=== PATIENT | male | born 1945 | race Caucasian/White ===

== ENCOUNTER 2017-05-08 05:12 | Inpatient (IN) ==
[2017-05-08] MEDS ORDERED: CEFAZOLIN 1 G INJECTION IVP ONE (05:35)
[2017-05-08 05:43] VITALS: BMI 41.1
[2017-05-08] MEDS ORDERED: FAMOTIDINE PB 20 MG/50 ML BAG IV ONE (06:00)
[2017-05-08] MEDS ORDERED: ONDANSETRON 4 MG/2 ML INJECTION IVP ONE (06:00)
[2017-05-08] MEDS ORDERED: LIDOCAINE 1% (10mg/ml) 2mL INJ PF SDV ID ONE (06:00)
[2017-05-08] MEDS ORDERED: METOCLOPRAMIDE 10mg/2ml INJECTION IVP ONE (06:00)
[2017-05-08] MEDS ORDERED: NS 1,000 ML IV SCH (06:00)
[2017-05-08] MEDS ORDERED: NOZIN NASAL SWAB NAS ONE ×2 (06:00→10:35)
[2017-05-08] MEDS ORDERED: ACETAMINOPHEN 500 MG TABLET PO ONE (06:00)
[2017-05-08] MEDS ORDERED: VANCOMYCIN 1,000 MG INJECTION ONE (06:27)
[2017-05-08] MEDS ORDERED: PROPOFOL 500 MG/50 ML VIAL IV ONE ×2 (06:35→08:02)
[2017-05-08] MEDS ORDERED: SEVOFLURANE 250ml LIQUID IH ONE (06:37)
--- NOTE | 2017-05-08 06:48 | Anesthesia Preoperative Report ---
Anesthesia Preoperative Record - Date and Time Date: 05/08/17 Preoperative Diagnosis: RT KAREN M16.11 Proposed Procedure: KAREN NPO Since Date: 05/08/17 NPO Since Time: 02:00 Allergies/Adverse Reactions: Allergies Allergy/AdvReac Type Severity Reaction Status Date / Time metformin Allergy Unknown YEAST Verified 05/08/17 05:54 INFECTION - Vital Signs Vital Signs: Temperature 98.4 F 05/08/17 05:42 Pulse Rate 102 H 05/08/17 05:42 Respiratory Rate 20 05/08/17 05:42 Blood Pressure 147/70 H 05/08/17 05:42 Pulse Oximetry 96 05/08/17 05:42 Height and Weight: Height 1.83 m Weight 137.6 kg Body Mass Index 41.1 - Medications Inpatient Medications: Current Medications Sodium Chloride (Normal Saline) 1,000 mls @ 50 mls/hr IV .Q20H NATALY Last Admin: 05/08/17 06:00 Dose: 50 mls/hr Epinephrine HCl 0.25 mg/Bupivacaine HCl 30 ml/Morphine Sulfate 15 mg/Ketorolac Tromethamine 60 mg/Sodium Chloride 65.25 mls @ 0 mls/hr OPSITE INTRAOP ONE; Per Protocol PRN Reason: Protocol Stop: 05/08/17 08:01 Tranexamic Acid 1,000 mg/ (Sodium Chloride) 110 mls @ 0 mls/hr TOP INTRAOP ONE PRN Reason: As Directed Stop: 05/08/17 16:40 Sodium Chloride (Iv Flush) 10 - 80 ml IV PRN PRN PRN Reason: Flushing Home Medications: Home Medications Medication Instructions Recorded Confirmed Type azithromycin 250 mg tablet 250 mg PO Q2D 28 Days tab 01/22/17 05/08/17 History Ascorbic Acid [Vitamin C] 1,000 mg PO BID 03/17/17 05/08/17 History Dabigatran [Pradaxa] 150 mg PO BID 03/17/17 05/07/17 History Furosemide [Lasix] 20 tab PO DAILY PRN 03/17/17 05/08/17 History Insulin Glargine [Lantus] 50 unit SQ BID 03/17/17 05/08/17 History Insulin Lispro [Humalog] 10 unit SQ BID 03/17/17 05/08/17 History Potassium Chloride [K-Dur] 10 meq PO WS PRN 03/17/17 05/08/17 History Rosuvastatin Calcium 20 mg PO WS 03/17/17 05/08/17 History Losartan/Hctz 100/25 [Hyzaar 1 tab PO DAILY 04/03/17 05/08/17 History 100/25] Mometasone Furoate [Asmanex] 1 puff INH Q4-6HPRN PRN 04/03/17 05/08/17 History Albuterol Sulfate [Proair Hfa] 1 puff INH PRN 05/08/17 History - Medical History Respiratory: Reports: Asthma Cardiovascular: Reports: Arrhythmia, Hypertension Gastrointestional: Reports: Morbid Obesity Renal/Endocrine: Reports: Diabetes Mellitus Type 1 - Surgical History HEENT Surgeries: Reports: Nose Surgery (sinus surgery x3), Oral Surgery (dental implants), Other (Exc of growth in throat-middle school) GI Surgery/Treatments: Reports: Colonoscopy (Polyps, hyperplastic and tubular adenoma), Other (abdominal abscess, drained in office) Musculoskeletal Surgery/Tx: Reports: Knee Arthroscopy (right menisectomy) Reproductive Surgery/Treatment: Reports: Vasectomy Anesthesia Reactions: None Hx Family Anesthesia Reaction: No History of Motion Sickness: No - Social History Smoking Status: Former smoker Hx Chewing Tobacco Use: No Second Hand Exposure: No Substance Use Type: does not use Alcohol Intake Frequency: does not drink - Pertinent Findings Laboratory: CBC and BMP 05/08/17 06:02 BMP 05/08/17 06:02 Sodium 145 H Potassium 3.7 Chloride 108 H Carbon Dioxide 26 BUN 21.0 H Creatinine 0.8 Glucose 80 Calcium 9.4 EKG: A-fib - Physical Exam Respiratory Exam: Present: wheezing Cardiovascular Exam: Present: irregularly irregular, no murmur - Airway Assessment Mallampati Score: I TMD: 3 Fingerbreadths Neck Extension: good Teeth: chipped teeth/crowns Overall Assessment: may be difficult mask vent - ASA ASA Score: 3 - Plan Regional/Trunk Block: Spinal - Discussion Discussion: Discussed risks/options/alternatives of anesthesia and questions answered. Patient consents. Nursing pain assessment noted. Present for Discussion: family member Attestation Statement: Prior to the delivery of any anesthetic medication, I examined the patient, developed the plan, obtained the patient's consent and discussed the risk and benefits of the procedure with the patient/guardian. - Additional Information Seen by Anesthesia: Yes
[2017-05-08] MEDS ORDERED: D5LR 1,000 ML IV SCH (07:00)
[2017-05-08] MEDS ORDERED: EPINEPHrine 0.25 MG, BUPIVACAINE 0.25% PF 30 ML, MORPHINE SULFATE 15 MG, KETOROLAC INJ ... OPSITE ONE (08:00)
[2017-05-08] MEDS ORDERED: PROPOFOL 20 ML ONE ×2 (08:55→09:17)
[2017-05-08] MEDS ORDERED: HYDROMORPHONE 2 MG/ML INJECTION IVP PRN (09:02)
[2017-05-08] MEDS ORDERED: VANCOMYCIN 1,000 MG INJECTION IAR ONE (09:02)
--- NOTE | 2017-05-08 09:15 | Operative Note ---
- Procedure Preoperative Diagnosis: Right hip primary degenerative joint disease Postoperative Diagnosis: Same as preoperative diagnosis. Surgeon: Michael Smalls MD Air Marshal: Obey Kimbrough Complications: None. Anesthesia: Spinal. Estimated Blood Loss: See Anesthesia Record. Fluids: Please see Anesthesia Record. Description of Procedure: Mr. Brown and his right hip were identified and marked in the preoperative holding area. He was brought back to the operating suite and spinal anesthetic was administered. He was then placed in a lateral decubitus position with his right hip up. The right lower extremity was prepped and draped in my normal sterile fashion. Timeout was performed. The [employer] Voyage robotic arm was used to assist with the surgery. A pelvic array was placed into the iliac crest through three 1 cm incisions. A posterior approach was utilized. An approximately 15 cm incision was made in the skin and dissection carried down to the muscle fascia which was then split in line with skin incision. A checkpoint was placed in the greater trochanter. The short external rotators were identified and tagged and detached. A capsulotomy was performed and the hip dislocated. A femoral neck osteotomy was performed at the pre-templated level measuring down 68mm from the femoral head. The head was removed and acetabulum exposed. Labrum was removed. The acetabulum was then registered with the robot. The robotic arm was then used to ream with a 53 reamer. The robot then was again used to place a 54 Trident cup in 40 of tilt and 25 of anteversion. A liner was then placed. The proximal femur was exposed and prepared with a cookie cutter followed by reaming and broaching to a size 7. We trialed with a +5 head. After thorough irrigation a final Accolade 2 size 7 stem with 127 neck was placed. Leg length and offset were checked with the robot and were good. A final +5 metal head was placed and the hip reduced. Betadine solution was used to irrigate throughout the case. 1 g of TXA was allowed to sit in the wound for 5 minutes and then suctioned out.It was followed by normal saline irrigation. Joint cocktail was injected throughout soft tissue. The capsulotomy was repaired with Ethibond. Short external rotators were also repaired with Ethibond. 1 g of vancomycin powder was placed into the wound. The muscle fascia was then repaired with #1 Vicryl. I then left my benefits assistant to close the subcutaneous tissue with 2-0 Vicryl followed by running 4-0 Monocryl skin followed by Dermabond and a sterile dressing. The patient with any placed back into supine position and taken to recovery room in the care of anesthesia.
--- NOTE | 2017-05-08 10:21 | Anesthesia Postoperative Note ---
- Date and Time Date: 05/08/17 Time: 10:20 - Status Patient Participated in Evaluation: Patient Participated in Person Vital Signs: Temperature 97.3 F 05/08/17 09:38 Pulse Rate 88 05/08/17 10:15 Respiratory Rate 20 05/08/17 10:15 Blood Pressure 98/52 05/08/17 10:15 Pulse Oximetry 96 05/08/17 10:15 Respiratory Function: Airway Patent Cardiovascular Function: Regular Pulse EKG: A-fib Mental Status: Alert and Oriented Pain Intensity: 0 Hydration: Taking PO Fluids, IV Infusing Complications During Recover: None Apparent - Follow-Up Instructions Instructions: Per Surgeon
[2017-05-08] MEDS ORDERED: DiphenhydrAMINE 50 MG/ML INJECTION IVP PRN (10:35)
[2017-05-08] MEDS ORDERED: DiphenhydrAMINE 25 MG CAPSULE PO PRN (10:35)
[2017-05-08] MEDS ORDERED: FUROSEMIDE 20 MG TABLET PO PRN (10:35)
[2017-05-08] MEDS ORDERED: LORazepam 1 MG TABLET PO PRN (10:35)
--- NOTE | 2017-05-08 10:37 | XRay Report ---
Indication: postoperative image PROCEDURE: XR pelvis w/ 1 view RT hip: Encounter: Initial Comparison: CT dated April 17, 2017 Findings: Postoperative changes of right total hip replacement are seen. There is expected postoperative subcutaneous gas. No evidence of hardware failure or acute fracture. No retained radiopaque surgical instruments or sponges seen. Impression: New right total hip prosthesis without evidence of immediate complication. .
[2017-05-08] MEDS: INSULIN GLARGINE 100unit/ml INJECTION SQ SCH ×2 (10:51→20:52)
[2017-05-08] MEDS: NS 1,000 ML IV SCH (11:04)
[2017-05-08] MEDS: ACETAMINOPHEN 325 MG TABLET PO SCH ×4 (11:33→20:52)
[2017-05-08] MEDS: POLYETHYL GLYCOL 3350 17gm PACKET PO SCH (12:22)
[2017-05-08] MEDS: Oxycodone *IR* 5 MG TABLET PO PRN ×3 (12:22→21:49)
[2017-05-08] MEDS: DOCUSATE SODIUM 100 MG CAPSULE PO SCH ×2 (12:22→20:51)
[2017-05-08] MEDS: ONDANSETRON 4 MG/2 ML INJECTION IVP PRN (14:14)
[2017-05-08] MEDS: INSULIN ASPART 100unit/ml INJECTION SQ PRN ×2 (14:23→21:48)
[2017-05-08] MEDS: NOZIN NASAL SWAB NAS SCH ×3 (15:37→22:15)
[2017-05-08] MEDS: CEFAZOLIN 2 G in NS 100 ML IV SCH ×2 (15:37→23:25)
[2017-05-08] MEDS ORDERED: --POM--Albuterol HFA 8 GM INHALER ORAL INH PRN (15:39)
[2017-05-08] MEDS ORDERED: SALINE FLUSH 10ml SYRINGE IV PRN (16:39)
[2017-05-08] MEDS ORDERED: TRANEXAMIC ACID 1,000 MG in NS 100 ML TOP ONE (16:39)
[2017-05-08] MEDS ORDERED: ROSUVASTATIN 20 MG TABLET PO SCH (17:30)
[2017-05-08] MEDS: ENOXAPARIN 40 MG/0.4 ML INJECTION SQ SCH (20:51)
[2017-05-08] MEDS: ASCORBIC ACID 500 MG TABLET PO SCH (20:51)
[2017-05-08] MEDS ORDERED: SENNOSIDES 8.6 MG TABLET PO SCH (21:00)
[2017-05-08 23:32] VITALS: O2SAT 93
[2017-05-09] MEDS: NS 1,000 ML IV SCH (01:26)
[2017-05-09 04:52] VITALS: TEMP 99.5
[2017-05-09] MEDS: NOZIN NASAL SWAB NAS SCH (05:42)
[2017-05-09] MEDS: Oxycodone *IR* 5 MG TABLET PO PRN ×2 (05:42→11:13)
[2017-05-09] MEDS ORDERED: SENNOSIDES 8.6 MG TABLET PO PRN (07:10)
[2017-05-09] MEDS: ONDANSETRON 4 MG/2 ML INJECTION IVP PRN (07:53)
--- NOTE | 2017-05-09 08:18 | Orthopedic Progress Note ---
Date: Subjective/Severity of Illness: Volodymyr is doing okay. He has some nausea with pain meds. Denies CP or feeling SOA. Used some O2 during the night but has weaned off this AM. He walked to the nurses station last evening. Urinating improved after straight cath x 1. Orthopedic Objective PO Vital signs: Temperature 99.5 F 05/09/17 04:00 Pulse Rate 95 05/09/17 04:00 Respiratory Rate 93 H 05/09/17 04:00 Blood Pressure 134/65 05/09/17 04:00 Pulse Oximetry 93 05/09/17 04:00 Height and Weight: Height 6 ft Weight 303 lb 5.697 oz Body Mass Index 41.1 - Constitutional General Appearance: Present: alert, cooperative, mild distress (Lying in bed with a wash cloth on his forehead as it makes his nausea more tolerable.), morbidly obese - Respiratory Exam Present: non-labored - Extremities Exam Extremities: Present: pulses intact. Absent: calf tenderness - Surgical Site Incision: Mepilex dressing intact, no drainage - Neurological Exam Present: no deficits - Psychiatric Exam Present: alert - Labs Result Diagrams: 05/09/17 04:10 05/09/17 04:10 Abnormal lab results 05/09/17 05/09/17 Range/Units 04:10 04:10 WBC 11.7 H (4.5-11.0) T/MM3 RBC 4.17 L (4.50-5.90) M/MM3 Hgb 12.3 L (13.5-17.5) GM/DL Hct 37.4 L (41-53) % BUN 23.0 H (9-20) MG/DL Glucose 137 H (75-110) MG/DL Calculated Osmolality 281 H (261-280) MOSM/KG H & H 05/09/17 Range/Units 04:10 Hgb 12.3 L (13.5-17.5) GM/DL Hct 37.4 L (41-53) % Orthopedic Assessment and Plan (1) Primary osteoarthritis of right hip Status: Acute Assessment and Plan: Rt KAREN 05/08/17 Lovenox 40mg SQ x 5 days then resume Pradaxa. Mobilize with PT / OT. Discussed pain meds and his nausea. Pt doesn't have much history with narcotics. Will try a scopolamine patch. He had difficulties with urination last evening and did get a straight cath x 1. Voiding better now. Will watch with using the patch. CM for discharge planning. - Anticoagulation Therapy Anticoagulation: other (Lovenox 40mg SQ daily x 5 days and then resume Pradaxa.) Hospital Course Summary Disclaimer: The visit summary below is not to be considered part of the above Progress Note.
[2017-05-09] MEDS ORDERED: SCOPOLAMINE 1.5 MG PATCH TD SCH (08:30)
[2017-05-09 09:35] VITALS: BP 136/63; PULSE 98; RESP 20
[2017-05-09] MEDS: INSULIN GLARGINE 100unit/ml INJECTION SQ SCH (09:44)
[2017-05-09] MEDS: ASCORBIC ACID 500 MG TABLET PO SCH (09:45)
[2017-05-09] MEDS: ACETAMINOPHEN 325 MG TABLET PO SCH (09:46)
[2017-05-09] MEDS: DOCUSATE SODIUM 100 MG CAPSULE PO SCH (09:46)
[2017-05-09] MEDS: POLYETHYL GLYCOL 3350 17gm PACKET PO SCH (09:47)
[2017-05-09] MEDS: INSULIN ASPART 100unit/ml INJECTION SQ PRN (11:11)
--- NOTE | 2017-05-09 13:23 | Discharge Summary ---
Orthopedic Discharge Info Date of admission: 05/08/17 05:12 Primary care physician: Guillermo Monroe MD Attending Physician: Wally Smalls MD Consults: 05/08/17 05:33 Consult to Anesthesiology [CONS] Routine Consulting Provider: ALEXANDR Marvin Reason For Exam: Preoperative Assessment 05/08/17 10:35 Case Management Consult [CONS] Routine Reason For Exam: Discharge Planning DME-Walker [CONS] Routine Height: 6 ft Weight: 303 lb 5.697 oz Comment: change dressing in 2 weeks Total Joint Outpatient Therapy [CONS] Routine Comment: change dressing in 2 weeks - Discharge Diagnosis (1) Primary osteoarthritis of right hip Status: Acute - Procedures Procedures: Right KAREN - Laboratory Result Diagrams: 05/09/17 04:10 05/09/17 04:10 Laboratory: Abnormal lab results 05/09/17 05/09/17 Range/Units 04:10 04:10 WBC 11.7 H (4.5-11.0) T/MM3 RBC 4.17 L (4.50-5.90) M/MM3 Hgb 12.3 L (13.5-17.5) GM/DL Hct 37.4 L (41-53) % BUN 23.0 H (9-20) MG/DL Glucose 137 H (75-110) MG/DL Calculated Osmolality 281 H (261-280) MOSM/KG H & H 05/09/17 Range/Units 04:10 Hgb 12.3 L (13.5-17.5) GM/DL Hct 37.4 L (41-53) % Orthopedic Discharge HPI - HPI Comments This patient was admitted for elective surgical tx of end stage degenerative joint disease that failed to respond to conservative treatment. Further details of this is found in the admission H&P. Orthopedic Hospital Course Hospital course: 05/09/17 13:23 After appropriate preoperative clearance and signing of operative consent, the patient was given IV antibiotics, according to orthopedic protocol. The patient was taken to the operating room and underwent elective joint arthroplasty. Following surgery, antibiotics were discontinued less than 24 hours according to joint protocol. Appropriate anticoagulants were initiated and SCDs added for DVT prevention. The dressing was clean, dry, and intact. Pain control was obtained via multimodal approach. Bowel motivation addressed with scheduled and PRN medications. Early mobilization was initiated through PT services. Discharge arrangements made by a collaborative effort between the patient and Case Management. Follow-up is scheduled in 2-3 weeks. Discharge instructions given by orthopedic providers and nursing staff at discharge. Discharge condition was good. Ongoing care required?: No - Postoperative Anemia patient received IVF, labs monitored daily, no intervention required, HGB drop- acceptable - Leukocytosis due to surgical stress response Discharge Plan - Med Rec/Dispo Referrals/Follow Up: Wally Smalls MD [Physician] - 06/02/17 11:30 am Skip Instructions: [facility] Postop Instructions Prescriptions: New Enoxaparin Sodium [Lovenox] 40 mg SQ Q24H #5 syringe Acetaminophen [Tylenol] 650 mg PO QID #100 tab Oxycodone *IR* [Roxicodone *Ir*] 5 - 15 mg PO Q3H PRN #60 tab PRN Reason: Breakthrough Pain Continue Potassium Chloride [K-Dur] 10 meq PO WS PRN PRN Reason: Edema Rosuvastatin Calcium 20 mg PO WS Furosemide [Lasix] 20 tab PO DAILY PRN PRN Reason: Edema Insulin Glargine [Lantus] 50 unit SQ BID Dabigatran [Pradaxa] 150 mg PO BID #0 Ascorbic Acid [Vitamin C] 1,000 mg PO BID Insulin Lispro [Humalog] 10 unit SQ BID Mometasone Furoate [Asmanex] 1 puff INH Q4-6HPRN PRN PRN Reason: Asthma Losartan/Hctz 100/25 [Hyzaar 100/25] 1 tab PO DAILY Albuterol Sulfate [Proair Hfa] 1 puff INH PRN PRN Reason: Shortness Of Air/Wheezing azithromycin 250 mg tablet 250 mg PO Q2D 28 Days tab - Disposition [facility]
[2017-05-09] MEDS: ENOXAPARIN 40 MG/0.4 ML INJECTION SQ SCH (16:18)
[2017-05-10] MEDS ORDERED: BISACODYL 10 MG SUPPOSITORY RECTALLY SCH (20:00)
[2017-05-12] MEDS ORDERED: SCOPOLAMINE PATCH REMOVAL TD SCH (08:30)
== END 2017-05-09 16:39 | disposition home health service (06) | DRG 470 ==
LOC: SRG 05:12
PROVIDERS: ADMIT Orthopaedic Surgery; ATTEND Orthopaedic Surgery

== ENCOUNTER 2017-10-08 16:00 | Inpatient (IN) ==
[2017-10-08] MEDS: ALBUTEROL 2.5mg/3ml (0.083%) NEB AEROSOL PRN (19:34)
[2017-10-08 19:36] VITALS: BMI 43.7
[2017-10-08] MEDS: ACETAMINOPHEN 325 MG TABLET PO SCH (21:00)
[2017-10-08] MEDS: ASCORBIC ACID 500 MG TABLET PO SCH (21:00)
[2017-10-08] MEDS: INSULIN GLARGINE 100unit/ml INJECTION SQ SCH (21:07)
[2017-10-09] MEDS: Oxycodone *IR* 5 MG TABLET PO PRN ×3 (00:14→08:46)
[2017-10-09] MEDS: INSULIN ASPART 100unit/ml INJECTION SQ SCH ×3 (08:45→17:24)
[2017-10-09] MEDS: ACETAMINOPHEN 325 MG TABLET PO SCH (08:46)
[2017-10-09] MEDS: ASCORBIC ACID 500 MG TABLET PO SCH ×2 (09:52→20:49)
[2017-10-09] MEDS: INSULIN GLARGINE 100unit/ml INJECTION SQ SCH ×2 (09:53→20:50)
--- NOTE | 2017-10-09 10:03 | Consult Note ---
Consult Information - Data of Consult Consult date: 10/09/17 Requesting Physician: Gerald Garcia MD Primary Care Provider: Guillermo Monroe MD Family Provider: Guillermo Monroe MD - Consult Narrative Reason for consult: DM, HTN, A-fib Past Medical History Patient Stated Medical History Atrial fibrillation Hypertension Type II diabetes Asthma GERD Cataracts High cholesterol Benign neoplasm of Colon Surgical History: Left total knee replacement- 10/07/17- Dr Smalls. Tonsillectomy. Vasectomy. Sinus Surgery X3. Rt knee Meniscus repair. Rt KAREN 05-08-17. Excision of growth in back to throat - as a child. Colonoscopy- hyperplastic and tubular adenoma. Left shoulder scope Family History: Family History Updates: Father- melanoma, heart disease, diabetes. Mother- congestive heart failure, hyperlipidemia. Brother-hyperlipidemia, coronary artery disease - Social History Smoking status: Former smoker Substance use type: does not use Alcohol intake frequency: does not drink Housing: house Household members: spouse Current residence: Apartment/Private Home Social history: PCP Dr Monroe Review of Systems All systems PM: 10-point ROS was reviewed, no additional remarkable complaints except - Musculoskeletal Musculoskeletal: Present: as per HPI, other (Left knee pain) Medications Home Medications Medication Instructions Recorded Confirmed Type Ascorbic Acid [Vitamin C] 1,000 mg PO BID 03/17/17 10/08/17 History Furosemide [Lasix 20 mg Tab] 20 tab PO PRN PRN 03/17/17 10/08/17 History Insulin Glargine [Lantus] 30 unit SQ BID 03/17/17 10/08/17 History Insulin Lispro [Humalog] 5 - 10 unit SQ PC 03/17/17 10/08/17 History Potassium Chloride [K-DUR 10 mEq 10 meq PO WS PRN 03/17/17 10/08/17 History Tablet] Rosuvastatin Calcium 20 mg PO WS 03/17/17 10/08/17 History Losartan/Hctz 100/25 [Hyzaar 1 tab PO DAILY 04/03/17 10/08/17 History 100/25] Mometasone Furoate [Asmanex] 1 puff INH Q4-6HPRN PRN 04/03/17 10/08/17 History Albuterol Sulfate [Proair Hfa] 1 puff INH BID PRN 05/08/17 10/08/17 History Dabigatran [Pradaxa] 150 mg PO BID #0 05/09/17 10/08/17 Rx Potassium Chloride [Klor-Con M10] 20 meq PO AM 08/18/17 10/08/17 History ergocalciferol (vitamin D2) 50,000 50,000 unit PO DAILY #4 cap 09/24/17 Rx unit capsule Allergies Allergy/AdvReac Type Severity Reaction Status Date / Time metformin Allergy Unknown YEAST Verified 10/07/17 05:46 INFECTION Exam Vital Signs: Temperature 97.9 F 10/09/17 08:00 Pulse Rate 95 10/09/17 08:00 Respiratory Rate 16 10/09/17 08:00 Blood Pressure 149/67 H 10/09/17 08:00 Pulse Oximetry 90 10/09/17 08:00 Telemetry Rhythm: A-fib Height/Weight/BMI: Height 1.8 m Weight 142.3 kg Body Mass Index 43.7 - Constitutional Present: well nourished, well developed - Routine HEENT Exam Eye: Present: EOMI ENT: Present: mucous membranes moist, dentition normal - Routine Respiratory Exam Present: CTA bilaterally. Absent: wheezes - Routine Cardiovascular Exam Present: RRR, S1, S2. Absent: murmur - Routine Abdominal Exam Present: soft, normoactive bowel sounds, non distended. Absent: tenderness - Routine Extremities Exam Present: pulses intact Comments: Left knee pain. Post-op dressing intact without evidence of erythema or drainage - Routine Back/Spine/Pelvis Exam Back/Spine: Present: full ROM - Routine Skin Exam Present: intact, dry, warm - Routine Neurological Exam Present: alert, oriented X3, CN II-XII intact - Routine Psychiatric Exam Present: normal affect, cooperative Results - Labs CBC & Chem 7: 10/09/17 04:14 10/09/17 04:14 Assessment and Plan (1) Status post left knee replacement Current visit: Yes Status: Acute Assessment and Plan: Impression S/P Left TKA- 10/07- Dr Smalls A-fibulation- Chronically rate controlled Type 2 DM HTN Asthma GERD Hyperlipidemia Obesity Plan Agree with admission to IRU under the care of Dr Garcia for ongoing therapy Telemetry reviewed- patient is chronically in rate controlled A-fib. Will discontinue Telemetry He is chronically anticoagulated on Pradaxa. Will follow post-op blood counts -Hgb today is 12.5. Pain control seems to be a issue this morning. Discussed with Dr Garcia- Will re -evaluate current regimen as he is getting little relief from Oxycodone Will monitor blood pressure and continue with Hyzaar Monitor accu-checks- On Lantus 30units BID and NovoLog TID with meals. May need adjustments depending on activity level Pt states his family is bringing nasal spray from home. We can order that once cleared by Pharmacy Postop bowel motivation with senna plus scheduled twice a day as well as milk of magnesia as needed Encourage work with PT and OT for ongoing postoperative strengthening Appreciate medical consultation, the hospitalist services will continue to follow patient and medical management. Existing comorbidities during his stay. At time of discharge medical care will return to primary care provider, Dr. Monroe 10/09/2017-6 PM-I reviewed this chart, the patient history, and the MATERIAL ANALYST's/PA's documented findings as above. We discussed and formulated the assessment and plan as above with the additions below.-Dr Red I went to see the patient twice this afternoon but he was sleeping. I did see him later in the great room before supper. He was okay with talking with me in the great room. He stated he was feeling okay and his knee pain was a little better. He denied any pain elsewhere other than in his bottom from being in bed too much. He stated he did okay with therapy today. He denies any shortness of breath. He complains of some runny nose and thinks he has allergies. On exam he is alert and in no acute distress. Chest exam reveals some scattered wheezes.. Cardiovascular reveals an irregularly irregular rhythm. Abdomen is obese, soft, nontender with positive bowel sounds. Extremities reveal trace edema. Skin is warm and dry and without rashes. Incision in his right knee is covered with a dressing without any surrounding erythema or drainage. Impression and plan Status post left total knee arthroplasty. Pain control is improving. Chronic A. fib with controlled rate. He is on Pradaxa. Regarding diabetes, will continue home insulin. Continue home medications for asthma and allergic rhinitis. Continue Crestor for hyperlipidemia. Continue losartan hydrochlorothiazide regarding hypertension. DVT Prophylaxis: Pradaxa Resuscitation Status: Full Code - Time spent with patient Time with patient PN: 35 minutes - Physician Narrative Physician: Ofe Red MD Narrative: Date: 10/09/17 Time: 0956 Hospital Course Summary Disclaimer: The visit summary below is not to be considered part of the above Progress Note. Hospital Course: Impression S/P Left TKA- 10/07- Dr Smalls A-fibulation- Chronically rate controlled Type 2 DM HTN Asthma GERD Hyperlipidemia Obesity Plan Agree with admission to IRU under the care of Dr Garcia for ongoing therapy Telemetry reviewed- patient is chronically in rate controlled A-fib. Will discontinue Telemetry He is chronically anticoagulated on Pradaxa. Will follow post-op blood counts -Hgb today is 12.5. Pain control seems to be a issue this morning. Discussed with Dr Garcia- Will re -evaluate current regimen as he is getting little relief from Oxycodone Will monitor blood pressure and continue with Hyzaar Monitor accu-checks- On Lantus 30units BID and NovoLog TID with meals. May need adjustments depending on activity level Pt states his family is bringing nasal spray from home. We can order that once cleared by Pharmacy Postop bowel motivation with senna plus scheduled twice a day as well as milk of magnesia as needed Encourage work with PT and OT for ongoing postoperative strengthening Appreciate medical consultation, the hospitalist services will continue to follow patient and medical management. Existing comorbidities during his stay. At time of discharge medical care will return to primary care provider, Dr. Monroe
--- NOTE | 2017-10-09 11:01 | IRU 24Hr Post Admit Eval ---
24 Hr Post Admission Physical - Relevant Changes Relevant Changes: No Reviewed: I have reviewed the patient's information and concur with the finding and results of the pre-admission screen. Certification: I certify the patient for rehabilitation. - Patient Condition (1) Status post left knee replacement Status: Acute Code(s): Z96.652 - Presence of left artificial knee joint Classification: Present on IRF Admission, IRF Tx That Should Address Diagnosis, Diagnosis Requiring Medical Follow Up Additional Information: He has had significant difficulty with pain management while on acute care. He is unable to be managed at home and this regard and requires close monitoring and adjustment of pain medications as tolerated. (2) A-fib Status: Acute Qualifiers: Atrial fibrillation type: chronic Qualified Code(s): I48.2 - Chronic atrial fibrillation Code(s): I48.91 - Unspecified atrial fibrillation Classification: Present on IRF Admission, IRF Tx That Should Address Diagnosis, Diagnosis Requiring Medical Follow Up Additional Information: Per DEXA has been restarted. He is at risk for neurologic events from TIA/CVA and also at risk for bleeding from the use of Pradaxa. He is at risk for further arrhythmias. (3) Diabetes Status: Acute Qualifiers: Diabetes mellitus type: type 2 Diabetes mellitus terminal gauger insulin use: with terminal gauger use Diabetes mellitus complication status: without complication Qualified Code(s): E11.9 - Type 2 diabetes mellitus without complications; Z79.4 - assisted (current) use of insulin Code(s): E11.9 - Type 2 diabetes mellitus without complications Classification: Present on IRF Admission, IRF Tx That Should Address Diagnosis, Diagnosis Requiring Medical Follow Up Additional Information: Patient is at risk for uncontrolled blood sugars. He has experienced hypoglycemic episodes at home and has had some elevated values while on acute care. Due to his variable energy requirements with therapy, he is at risk for uncontrolled blood sugars. (4) Hypertension Status: Acute Qualifiers: Hypertension type: essential hypertension Qualified Code(s): I10 - Essential (primary) hypertension Code(s): I10 - Essential (primary) hypertension Classification: Present on IRF Admission, IRF Tx That Should Address Diagnosis, Diagnosis Requiring Medical Follow Up - Prior Functional Status Lives With: Spouse Residence Type: Apartment/Private Home Assitive Devices: None Prior Functional Status: Indep. at home or school, Used no assistive device, Indep. w/ IADL - Current Functional Status Current Level of Function: Current level of functioning is as follows: He is independent for eating but requires moderate assistance for bathing. He requires supervision for upper body dressing but moderate assistance for lower body dressing as well as bed/ chair/wheelchair transfers and toilet transfers. He requires maximum assistance for walking with a rolling walker 84 feet. At the present time his pain limits him significantly with regard to transfers as well as ambulation. Failed Alternative Therapy: Yes (patient was admitted as an outpatient but his pain has not been able to be controlled as an outpatient for him to go home. Therefore he has failed outpatient management.) Patient Requirements: The patient requires oversight by rehabilitation physician to manage their rehabilitation treatment plan and multidisciplinary approach to care that can only be provided in an IRF and requires a multidisciplinary approach to care, provided by professional PTs, OTs, STs, dieticians, RTs, rehabilitation nurses and is not available in lesser levels of care. Limitations Req: Mobility Impairment, ADL Impairment Physical Therapy Minutes: 90 Occupational Therapy Minutes: 90 Therapy: The patient is to receive therapy at least 5 days a week. ROM Deficit: Left Lower Extremity - Complications/Comorbidities Impact on Functional Outcomes: Patient's pain and morbid obesity may negatively impact his functional outcome. Barriers to Discharge: Weakness, Balance, Endurance, Pain Control - Plan to Avoid Complications Plan to Avoid Complications: The patient cannot receive this care in a lesser intensive setting such as [facility] or Outpatient Therapy due to the patient requiring the following : He requires 24 hour rehabilitation nursing monitoring of his blood sugars and blood pressure as well as pain level in order to allow him to participate with therapy safely. He requires a multidisciplinary approach with medical management and physical therapy and occupational therapy to allow him to return to his previous level of functioning.
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
[2017-10-09] MEDS: IPRATROPIUM 0.06% EA NOSTRIL SCH ×2 (15:23→20:49)
[2017-10-09] MEDS: ROSUVASTATIN 20 MG TABLET PO SCH (17:23)
[2017-10-09] MEDS: ALBUTEROL 2.5mg/3ml (0.083%) NEB AEROSOL PRN (19:48)
[2017-10-09] MEDS: AZELASTINE 0.1% NASAL SPRAY EA NOSTRIL SCH (20:49)
[2017-10-09] MEDS: MONTELUKAST 10 MG TABLET PO SCH (20:50)
[2017-10-09] MEDS: SENNA + DOCUSATE TABLET PO SCH (20:51)
[2017-10-09] MEDS: Oxycodone *IR* 15 MG TABLET PO PRN (23:13)
[2017-10-10] MEDS: ALBUTEROL 2.5mg/3ml (0.083%) NEB AEROSOL PRN (06:34)
[2017-10-10] MEDS: INSULIN ASPART 100unit/ml INJECTION SQ SCH ×3 (08:58→17:31)
[2017-10-10] MEDS: ASCORBIC ACID 500 MG TABLET PO SCH ×2 (08:58→20:16)
[2017-10-10] MEDS: INSULIN GLARGINE 100unit/ml INJECTION SQ SCH ×2 (08:58→20:17)
[2017-10-10] MEDS: SENNA + DOCUSATE TABLET PO SCH ×2 (08:58→20:17)
[2017-10-10] MEDS: AZELASTINE 0.1% NASAL SPRAY EA NOSTRIL SCH ×2 (08:59→20:15)
[2017-10-10] MEDS: IPRATROPIUM 0.06% EA NOSTRIL SCH ×3 (08:59→20:15)
[2017-10-10] MEDS: Oxycodone *IR* 15 MG TABLET PO PRN ×3 (09:17→20:49)
[2017-10-10] MEDS: INSULIN ASPART 100unit/ml INJECTION SQ PRN ×2 (10:24→14:23)
--- NOTE | 2017-10-10 10:50 | IRU Progress Note ---
- Subjective/Serverity of Illness Date: 10/10/17 Mr. Brown was interviewed and examined on acute inpatient rehabilitation. He complains of severe pain in the left knee with any activity. We increased his oxycodone yesterday to 15 mg. He is also on sustained release acetaminophen chronically. He reports dyspnea with activity but denies any chest pain or palpitations. His appetite is reduced he states related to the pain. Review of his blood sugars indicates that fasting sugars are good at 114 but 2 hours after eating they are well over 200. He is on insulin. Management per hospitalists. His blood pressure likewise is running a bit high but this may be related to his pain management at this time. He states that his pain is fairly well- controlled while in bed asleep but when he gets up and moves it is severe and difficult to manage. Exam Vital Signs: Temperature 99.6 F 10/10/17 08:00 Pulse Rate 102 H 10/10/17 08:00 Respiratory Rate 20 10/10/17 08:00 Blood Pressure 159/74 H 10/10/17 08:00 Pulse Oximetry 93 10/10/17 10:00 Height/Weight/BMI: Height 1.8 m Weight 142.3 kg Body Mass Index 43.7 - Constitutional Present: moderate distress (complains of severe pain while he is up and about with a walker.), well nourished, well developed, morbidly obese, cooperative - Routine HEENT Exam Head: Present: normocephalic Eye: Present: EOMI ENT: Present: mucous membranes moist, oropharynx clear - Routine Respiratory Exam Present: CTA bilaterally. Absent: wheezes - Routine Cardiovascular Exam Present: S1, S2, irregularly irregular. Absent: murmur - Routine Abdominal Exam Present: soft, normoactive bowel sounds, non distended. Absent: tenderness - Routine Extremities Exam Present: edema (trace of edema left lower extremity as anticipated. Knee itself is a bit puffy, again as anticipated.) - Routine Skin Exam Present: dry, warm, ecchymosis - Routine Neurological Exam Present: alert, oriented X3, CN II-XII intact - Routine Psychiatric Exam Present: normal affect, cooperative, good insight, good judgment Results IRU - Labs Labs: Reviewed current laboratory findings which are stable. IRU A/P (1) Status post left knee replacement Current visit: Yes Status: Acute Continues to struggle with pain management despite oxycodone 15 mg at a time. He got behind on his pain medications in the night apparently and this morning has more discomfort. We will continue the acetaminophen sustained release 3 times daily on a regular basis and encourage him to take the oxycodone prior to therapy as well as during the night. Exam of the knee shows stability at present. There are some ecchymoses noted as anticipated along with some edema. However no evidence of infection. (2) A-fib Qualifiers: Atrial fibrillation type: chronic Qualified Code(s): I48.2 - Chronic atrial fibrillation Current visit: No Status: Chronic Remains in atrial fibrillation and on Pradaxa without evidence of acute blood loss at present. (3) Diabetes Qualifiers: Diabetes mellitus type: type 2 Diabetes mellitus salvage determiner insulin use: with salvage determiner use Diabetes mellitus complication status: without complication Qualified Code(s): E11.9 - Type 2 diabetes mellitus without complications; Z79.4 - senior care (current) use of insulin Current visit: No Status: Chronic His blood sugars are reviewed. Fasting sugars appear to be okay but 2 hours after eating there are well over 200. (4) Hypertension Qualifiers: Hypertension type: essential hypertension Qualified Code(s): I10 - Essential (primary) hypertension Current visit: No Status: Acute His blood pressures are borderline elevated, likely related to his pain. DVT Prophylaxis: Pradaxa Resuscitation Status: Full Code - Course Hospital Course: Gerald Garcia MD: 10/10/17 10:51 Progress is difficult with therapy because of his discomfort in the left knee. Sugars are a bit up after eating but look good fasting. Blood pressures are a bit elevated. - Interventions to Obtain Goals PT Treatment Plan: Balance/Proprioception, Functional Activities, Gait Training , Patient/Family Education, Therapeutic Exercise OT Treatment Plan: ADL (Basic Care), Balance Training, IADL, Pt./Family Education, Ther. Exercise for ADL Goals Progress/Modifications: We discussed with the patient importance of taking the pain medications more regularly in order to not "get behind" with his pain. He remains on acetaminophen sustained release chronically and we are using oxycodone 15 mg immediate release. His blood sugars are a bit high after eating, also possibly related to pain and recent surgery. Management of this per hospitalist service. He does have some dyspnea with activity but I think this is mostly deconditioning plus he does have some underlying bronchospasm in the past. Today his lungs sound fairly clear. He does use an inhaler as needed. Please note that the patient's individual plan of care was developed and documented today, requiring review of therapy notes, medical conditions and anticipated functional recovery. This required additional medical decision making with regard to interaction of the patient's medical issues with the anticipated functional recovery. Please see separate document
--- NOTE | 2017-10-10 10:56 | IRU Plan of Care ---
[facility] Overall Plan of Care - Date Date: 10/10/17 - Patient Impairments (1) Status post left knee replacement Code(s): Z96.652 - Presence of left artificial knee joint Status: Acute Classification: Present on IRF Admission, IRF Tx That Should Address Diagnosis, Diagnosis Requiring Medical Follow Up (2) Hypertension Qualifiers: Hypertension type: essential hypertension Qualified Code(s): I10 - Essential (primary) hypertension Code(s): I10 - Essential (primary) hypertension Status: Acute Classification: Present on IRF Admission, IRF Tx That Should Address Diagnosis, Diagnosis Requiring Medical Follow Up (3) Obesity, morbid, BMI 40.0-49.9 Code(s): E66.01 - Morbid (severe) obesity due to excess calories Status: Acute Classification: Present on IRF Admission, IRF Tx That Should Address Diagnosis, Diagnosis Requiring Medical Follow Up (4) A-fib Qualifiers: Atrial fibrillation type: chronic Qualified Code(s): I48.2 - Chronic atrial fibrillation Code(s): I48.91 - Unspecified atrial fibrillation Status: Chronic Classification: Present on IRF Admission, IRF Tx That Should Address Diagnosis, Diagnosis Requiring Medical Follow Up (5) Diabetes Qualifiers: Diabetes mellitus type: type 2 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: with terminal make up operator use Diabetes mellitus complication status: without complication Qualified Code(s): E11.9 - Type 2 diabetes mellitus without complications; 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 Certification: I certify the patient for rehabilitation. - Medical Prognosis Medical Prognosis: Good Vital Signs: Last Vital Signs Temp 99.6 F 10/10/17 08:00 Pulse 102 H 10/10/17 08:00 Resp 20 10/10/17 08:00 BP 159/74 H 10/10/17 08:00 Pulse Ox 93 10/10/17 10:00 - Anticipated Interventions Anticipated Interventions: The patient requires inpatient IRF care for PT and OT for residuals remaining from Left total knee replacement resulting in muscular weakness and strength deficits. An individualized overall plan of care has been developed after careful review of the patient's preadmission screening, post admission physician evaluation and assessments of all therapy disciplines and/or other pertinent clinicians involved in treating the patient. This indicates medical necessity and rehabilitation necessity have been established through a thorough review of all available medical information. Strength Deficits: Left Lower Extremity - Current Functional Status Failed Alternative Therapy: Yes (patient was not able to tolerate outpatient management due to severe pain as well as blood sugar management and blood pressure.) Patient Requires: The patient requires oversight by rehabilitation physician to manage their rehabilitation treatment plan and multidisciplinary approach to care that can only be provided in an IRF and requires a multidisciplinary approach to care, provided by professional PTs and OTs, rehabilitation nurses, and may require STs , dieticians, and RTS. This is not available in lesser levels of care. Physical Therapy Minutes: 90 Occupational Therapy Minutes: 90 Therapy: The patient is to receive therapy at least 5 days a week. - Anticipated LOS/Outcomes Anticipated Functional Outcome: It is anticipated the patient will be able to return home at modified independent level of functioning for ambulation, transfers, self-care and ADLs.Expected functional improvements include: -- Modified independant to independant ambulation with or without assistive device -- Modified independant to independant ADL's with or without assistive device -- Return to pre-morbid level of mobility -- Maximize level of mobility and ADL's to decrease burden on any caregiver involved with this patient's care Anticipated Length of Stay (days): 10 Anticipated DC Destination: Home, Self Care, Home Health Service Home Safety Plan: The patient will be provided with the development of a Home Safety Plan for return to a home or home-like environment and and to ensure safety post discharge. - Plan to Avoid Complications Barriers to Attaining Goals: Weakness, Endurance, Pain Control Plan to Avoid Complications: The patient cannot receive this care in a lesser intensive setting such as Detention or Outpatient Therapy due to the patient requiring the following : Patient requires a multidisciplinary, coordinated approach with physical therapy, occupational therapy and 24 rehabilitation nursing to monitor and treat his severe pain in the left knee. He requires 24 rehabilitation nursing monitoring of his blood sugars, blood pressure and to reduce his fall risk. He requires medical supervision for all these as well.
--- NOTE | 2017-10-10 11:03 | Progress Note ---
- Date 10/10/17 Subjective: Aquilino was resting in bed, in-between sessions. He states that his recovery from this knee replacement is a lot different than the one from his hip replacement. He didn't expect it to be so difficult and painful. He is "eating like a bird" here but denies nausea/vomiting. At home he usually gives himself between 5 and 10 U of insulin before meals. This morning he states that he made a mistake and ordered toast, then drank a shake. His glucose was up to 292. He hasn't had a BM for a couple of days but isn't worried about it. He has some sinus drainage and has started his nasal spray. Objective Vital signs: Temperature 99.6 F 10/10/17 08:00 Pulse Rate 102 H 10/10/17 08:00 Respiratory Rate 20 10/10/17 08:00 Blood Pressure 159/74 H 10/10/17 08:00 Pulse Oximetry 93 10/10/17 10:00 Height/Weight/BMI: Height 1.8 m Weight 142.3 kg Body Mass Index 43.7 - Constitutional Present: no acute distress, well nourished, well developed, obese - Routine HEENT Exam Head: Present: normocephalic ENT: Present: mucous membranes dry - Routine Respiratory Exam Present: CTA bilaterally - Routine Cardiovascular Exam Present: S1, S2, irregular rhythm - Routine Abdominal Exam Present: soft, normoactive bowel sounds, non distended, non tender - Routine Extremities Exam Present: pulses intact Comments: left knee postop swelling - dressing intact - Routine Musculoskeletal Exam Musculoskeletal: Present: joint swelling (left knee) - Routine Skin Exam Present: intact, dry, warm - Routine Neurological Exam Present: alert, oriented X3, normal speech - Routine Psychiatric Exam Present: normal affect, normal thought process, cooperative Results - Labs CBC & Chem 7: 10/09/17 04:14 10/09/17 04:14 Assessment and Plan (1) Status post left knee replacement Current visit: Yes Status: Acute Assessment and Plan: Impression S/P Left TKA- 10/07- Dr Slim Baird-fib - Chronically rate controlled Type 2 DM HTN Asthma GERD Hyperlipidemia Obesity Plan Hyperglycemia -we discussed that we will need to use caution increasing insulin b/c of poor appetite and increased activity -pt will determine how much insulin to dose before meals, between 5-10 units, which is what he takes at home. Continue Lantus. He had 1 reading of hypoxia, 89% on room air but this improved to 93% on recheck. He denies any dyspnea. Constipation - continue meds for bowel motivation. Continue PT/OT and pain control per attending. 10/10/2017-5:30 PM-I reviewed this chart, the patient history, and the [facility]'s/PA 's documented findings as above. We discussed and formulated the assessment and plan as above with the additions below.-Dr. Red Patient states that he's feeling better. He states that his pain is improving and his mobility is improving. His appetite is improving as well. He has not had a bowel movement yet but thinks it's because he is eating very little up until today. He does not feel constipated. He does have sinus drainage and some cough which he attributes to his usual allergies and asthma. On exam he is alert and in no acute distress. Cardiovascular reveals a regular rate and rhythm. Chest reveals some occasional wheezing. Abdomen is soft and nontender. Extremities are free of edema. Impression and plan Regarding allergic rhinitis-we'll add nasal steroids and see if this helps Regarding asthma-continue breathing treatments and monitor The patient stated he would restart Senokot with Colace since he has not had a bowel movement. DVT Prophylaxis: Pradaxa Resuscitation Status: Full Code - Physician Narrative Narrative: Date: 10/10/17 Time: 1102 Hospital Course Summary Disclaimer: The visit summary below is not to be considered part of the above Progress Note. Hospital Course: 10/09 Agree with admission to IRU under the care of Dr Garcia for ongoing therapy Telemetry reviewed- patient is chronically in rate controlled A-fib. Will discontinue Telemetry He is chronically anticoagulated on Pradaxa. Will follow post-op blood counts -Hgb today is 12.5. Pain control seems to be a issue this morning. Discussed with Dr Garcia- Will re -evaluate current regimen as he is getting little relief from Oxycodone Will monitor blood pressure and continue with Hyzaar Monitor accu-checks- On Lantus 30units BID and NovoLog TID with meals. May need adjustments depending on activity level Pt states his family is bringing nasal spray from home. We can order that once cleared by Pharmacy Postop bowel motivation with senna plus scheduled twice a day as well as milk of magnesia as needed Encourage work with PT and OT for ongoing postoperative strengthening Appreciate medical consultation, the hospitalist services will continue to follow patient and medical management. Existing comorbidities during his stay. At time of discharge medical care will return to primary care provider, Dr. Monroe 10/10 Hyperglycemia -we discussed that we will need to use caution increasing insulin b/c of poor appetite and increased activity -pt will determine how much insulin to dose before meals, between 5-10 units, which is what he takes at home. Continue Lantus. He had 1 reading of hypoxia, 89% on room air but this improved to 93% on recheck. He denies any dyspnea.
[2017-10-10] MEDS ORDERED: POLYETHYL GLYCOL 3350 17gm PACKET PO PRN (11:26)
[2017-10-10] MEDS ORDERED: INSULIN ASPART 100unit/ml INJECTION SQ SCH (12:00)
[2017-10-10] MEDS: ROSUVASTATIN 20 MG TABLET PO SCH (17:30)
[2017-10-10] MEDS: FLUTICASONE NASAL SPRAY 50mcg EA NOSTRIL SCH (20:14)
[2017-10-10] MEDS: MONTELUKAST 10 MG TABLET PO SCH (20:17)
[2017-10-11] MEDS: Oxycodone *IR* 15 MG TABLET PO PRN ×4 (06:22→20:31)
[2017-10-11] MEDS ORDERED: INSULIN ASPART 100unit/ml INJECTION SQ SCH (08:00)
[2017-10-11] MEDS: INSULIN GLARGINE 100unit/ml INJECTION SQ SCH ×2 (08:42→20:32)
[2017-10-11] MEDS: INSULIN ASPART 100unit/ml INJECTION SQ SCH ×3 (08:43→17:21)
[2017-10-11] MEDS: IPRATROPIUM 0.06% EA NOSTRIL SCH ×3 (08:43→20:30)
[2017-10-11] MEDS: AZELASTINE 0.1% NASAL SPRAY EA NOSTRIL SCH ×2 (08:44→20:30)
[2017-10-11] MEDS: FLUTICASONE NASAL SPRAY 50mcg EA NOSTRIL SCH (08:44)
[2017-10-11] MEDS: SENNA + DOCUSATE TABLET PO SCH ×2 (08:45→20:31)
[2017-10-11] MEDS: ASCORBIC ACID 500 MG TABLET PO SCH ×2 (08:48→20:31)
[2017-10-11] MEDS: ROSUVASTATIN 20 MG TABLET PO SCH (17:21)
[2017-10-11] MEDS: ALBUTEROL 2.5mg/3ml (0.083%) NEB AEROSOL PRN (20:18)
[2017-10-11] MEDS: MONTELUKAST 10 MG TABLET PO SCH (20:31)
[2017-10-12] MEDS: ALBUTEROL 2.5mg/3ml (0.083%) NEB AEROSOL PRN (03:44)
[2017-10-12] MEDS: Oxycodone *IR* 15 MG TABLET PO PRN (06:10)
[2017-10-12] MEDS: INSULIN ASPART 100unit/ml INJECTION SQ SCH ×3 (08:26→17:26)
[2017-10-12] MEDS: ASCORBIC ACID 500 MG TABLET PO SCH ×2 (09:39→21:16)
[2017-10-12] MEDS: SENNA + DOCUSATE TABLET PO SCH ×2 (09:39→21:17)
[2017-10-12] MEDS: INSULIN GLARGINE 100unit/ml INJECTION SQ SCH ×2 (09:40→21:18)
[2017-10-12] MEDS: FLUTICASONE NASAL SPRAY 50mcg EA NOSTRIL SCH (09:41)
[2017-10-12] MEDS: IPRATROPIUM 0.06% EA NOSTRIL SCH ×3 (09:41→21:18)
[2017-10-12] MEDS: AZELASTINE 0.1% NASAL SPRAY EA NOSTRIL SCH ×2 (09:42→21:18)
[2017-10-12] MEDS: INSULIN ASPART 100unit/ml INJECTION SQ PRN (14:33)
[2017-10-12] MEDS: ROSUVASTATIN 20 MG TABLET PO SCH (17:26)
[2017-10-12] MEDS: MONTELUKAST 10 MG TABLET PO SCH (21:17)
[2017-10-13] MEDS: Oxycodone *IR* 15 MG TABLET PO PRN ×4 (00:21→15:10)
[2017-10-13] MEDS: ALBUTEROL 2.5mg/3ml (0.083%) NEB AEROSOL PRN ×2 (00:35→08:00)
[2017-10-13] MEDS: INSULIN ASPART 100unit/ml INJECTION SQ SCH ×2 (09:08→12:04)
[2017-10-13] MEDS: INSULIN GLARGINE 100unit/ml INJECTION SQ SCH (09:09)
[2017-10-13] MEDS: AZELASTINE 0.1% NASAL SPRAY EA NOSTRIL SCH (09:09)
[2017-10-13] MEDS: SENNA + DOCUSATE TABLET PO SCH (09:10)
[2017-10-13] MEDS: ASCORBIC ACID 500 MG TABLET PO SCH (09:10)
[2017-10-13] MEDS: FLUTICASONE NASAL SPRAY 50mcg EA NOSTRIL SCH (09:11)
[2017-10-13] MEDS: IPRATROPIUM 0.06% EA NOSTRIL SCH ×2 (09:12→15:10)
[2017-10-13] MEDS: INSULIN ASPART 100unit/ml INJECTION SQ PRN (10:12)
--- NOTE | 2017-10-13 11:07 | IRU Progress Note ---
- Subjective/Serverity of Illness Date: 10/13/17 Mr. Brown states that his pain management is much improved. It is improving "exponentially." He is able to transfer better and ambulate better he states. He continues to have a cough and some wheezing which he ascribes to "sinus problems." He denies any chest pain. His bowels are moving. Brief therapy update: As of a couple days ago he was standby assist for transfers. We will get an updated report today at team meeting. He is able and when 125 feet. He is using a front-wheeled walker. Update on medical issues were actively managing and monitoring as follows: 1. s/p left total knee replacement: Certainly is improving with therapy and his pain management is improved. He is using 15 mg of oxycodone about 4 times daily along with sustained release acetaminophen. 2. Diabetes mellitus type 2 on chronic insulin therapy: His blood sugars are reasonably well-controlled the present time. No evidence of hypoglycemia is noted. 3. Hypertension: His blood pressures are reviewed in detail. They range between 120 and 140. Overall we would consider these adequately controlled in view of his pain. 4. Morbid obesity: Continue efforts at weight control would be appropriate in order to improve ambulation, and to protect his joints. 5. Bronchospasm: He continues to have evidence of bronchospasm. He trips this to sinus drainage which irritates his throat and then causes bronchospasm. He is on inhalers. 6. Atrial fib: He remains on Pradaxa without evidence of acute blood loss at this time. Exam Vital Signs: Temperature 97.6 F 10/13/17 07:36 Pulse Rate 93 10/13/17 07:36 Respiratory Rate 18 10/13/17 08:02 Blood Pressure 141/65 H 10/13/17 07:36 Pulse Oximetry 99 10/13/17 08:02 Height/Weight/BMI: Height 1.8 m Weight 142.3 kg Body Mass Index 43.7 - Constitutional Present: mild distress, well nourished, well developed, morbidly obese, cooperative - Routine HEENT Exam Head: Present: normocephalic Eye: Present: EOMI ENT: Present: mucous membranes moist, oropharynx clear - Routine Neck Exam Present: supple, full ROM - Routine Respiratory Exam Present: wheezes (has bilateral wheezes.) - Routine Cardiovascular Exam Present: S1, S2, irregularly irregular. Absent: murmur - Routine Abdominal Exam Present: soft, normoactive bowel sounds, non distended. Absent: tenderness - Routine Extremities Exam Present: no edema, normal capillary refill - Routine Skin Exam Present: dry, warm, ecchymosis (as anticipated about the left knee.) - Routine Neurological Exam Present: alert, oriented X3, CN II-XII intact - Routine Psychiatric Exam Present: normal affect Results IRU - Labs Labs: Have reviewed chart dated including labs, physical therapy notes and other providers entries. IRU A/P (1) Status post left knee replacement Current visit: Yes Status: Acute He is healing up nicely from the total joint replacement. Pain management is improved. He is on oxycodone about 15 mg 4 times daily. (2) Hypertension Qualifiers: Hypertension type: essential hypertension Qualified Code(s): I10 - Essential (primary) hypertension Current visit: No Status: Acute Overall his blood pressures are improved with regard to his pain management as well. (3) Obesity, morbid, BMI 40.0-49.9 Current visit: No Status: Acute (4) A-fib Qualifiers: Atrial fibrillation type: chronic Qualified Code(s): I48.2 - Chronic atrial fibrillation Current visit: No Status: Chronic His rate appears to be adequately controlled. 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 DVT Prophylaxis: Pradaxa Resuscitation Status: Full Code - Course Hospital Course: Gerald Garcia MD: 10/10/17 10:51 Progress is difficult with therapy because of his discomfort in the left knee. Sugars are a bit up after eating but look good fasting. Blood pressures are a bit elevated. 10/13/17 11:13 Pain management is improved. Blood pressures are improved. Blood sugars are reviewed and are stable. He would like to go home and we will have a team meeting today in this regard. - Interventions to Obtain Goals PT Treatment Plan: Balance/Proprioception, Functional Activities, Gait Training , Patient/Family Education, Therapeutic Exercise OT Treatment Plan: ADL (Basic Care), Balance Training, IADL, Pt./Family Education, Ther. Exercise for ADL Goals Progress/Modifications: Patient would like to go home today. He states that he is stable for dismissal from a therapy standpoint. However, there was report that he was still requiring some assistance with transfers. We will discuss further with therapy at team meeting at 1 PM today in the patient's room. From a medical standpoint he seems to be stable. His blood sugars and blood pressure are improved and pain management is improved. We discussed with him the importance of trying to get back on narcotic pain medication.
--- NOTE | 2017-10-13 13:32 | IRU Team Meeting ---
IRU Team Meeting - Nursing Bladder Assistive Devices Utilized:: Urinal Bladder Management Level of Assist: Modified Independent Bladder Frequency of Accidents: No accidents Bowel Assistive Devices Utilized:: Medication Bowel Management Level of Assist: Modified Independent Bowel Frequency of Accidents: No accidents Vital Signs: Vital Signs - 24 hr 10/12/17 15:56 10/12/17 21:14 10/13/17 00:35 Temperature 98.7 F 98.6 F Pulse Rate 88 96 Respiratory Rate 20 14 18 Blood Pressure 128/65 137/70 Pulse Oximetry 91 91 10/13/17 07:36 10/13/17 08:02 Temperature 97.6 F Pulse Rate 93 Respiratory Rate 18 18 Blood Pressure 141/65 H Pulse Oximetry 90 99 Current Medications: Acetaminophen (Tylenol Arthritis) 1,300 mg PO Q8HR [facility] Last Admin: 10/13/17 09:09 Dose: 1,300 mg Albuterol Sulfate (Proventil Neb (0.083%)) 2.5 mg AEROSOL RTBID PRN Last Admin: 10/13/17 08:00 Dose: 2.5 mg Ascorbic Acid (Vitamin C) 1,000 mg PO BID [facility] Last Admin: 10/13/17 09:10 Dose: 1,000 mg Azelastine HCl (Astelin 0.1% Nasal Deal) 1 spray EA NOSTRIL BID [facility] Last Admin: 10/13/17 09:09 Dose: 1 spray Dabigatran (Pradaxa) 150 mg PO BID [facility] Last Admin: 10/13/17 09:10 Dose: 150 mg Fluticasone Propionate (Flonase) 2 spray EA NOSTRIL DAILY [facility] Last Admin: 10/13/17 09:11 Dose: 2 spray HCTZ/Losartan Potassium (Hyzaar 100/25) 1 tab PO DAILY [facility] Last Admin: 10/13/17 09:10 Dose: 1 tab Insulin Aspart (Novolog) 2 - 8 unit SQ SS PRN; Protocol PRN Reason: Hyperglycemia Last Admin: 10/13/17 10:12 Dose: 2 unit Insulin Aspart (Novolog) 5 - 10 unit SQ WM [facility] Last Admin: 10/13/17 12:04 Dose: 5 unit Insulin Glargine (Lantus) 30 unit SQ BID [facility] Last Admin: 10/13/17 09:09 Dose: 30 unit Ipratropium [place] (Atrovent 0.06% Nasal Deal) 2 spray EA NOSTRIL TID [facility] Last Admin: 10/13/17 09:12 Dose: 2 spray Magnesium Hydroxide (Mom) 30 ml PO DAILY PRN PRN Reason: Constipation Last Admin: 10/11/17 17:58 Dose: 30 ml Mometasone Furoate (Asmanex Twisthaler) 1 puff ORAL INH Q4-6HR PRN PRN Reason: Asthma Montelukast Sodium (Singulair) 10 mg PO HS [facility] Last Admin: 10/12/17 21:17 Dose: 10 mg Oxycodone HCl (Roxicodone *Ir*) 15 mg PO Q3H PRN PRN Reason: Pain Last Admin: 10/13/17 12:08 Dose: 15 mg Polyethylene Glycol (Miralax) 17 gm PO DAILY PRN Potassium Chloride (K-Dur 20 Meq Tablet) 20 meq PO WB [facility] Last Admin: 10/13/17 09:10 Dose: 20 meq Rosuvastatin Calcium (Crestor) 20 mg PO WS [facility] Last Admin: 10/12/17 17:26 Dose: 20 mg Senna/Docusate Sodium (Senna Plus Tablet) 1 tab PO BID [facility] Last Admin: 10/13/17 09:10 Dose: 1 tab Current Medical Issues: Diabetes mellitus, pain management Comments: I certify that I personally led the interdisciplinary team meeting and agree with comments, barriers and goals indicated. Team meeting was held in the patient's room with the patient and the following family members present: patient alone Mr. Brown notes improved pain management with current regimen. His blood sugars are being monitored. He remains on insulin. Flonase was added late last week after review of his home medications. - Physical Therapy Bed, Chair, Wheelchair Transfer Assist: Modified Independent Ambulation Ability: Modified Independent Ambulation Distance: 351 Stair Climbing Ability: Modified Independent Number of Steps Climbed: 12 Car Transfer Ability: Stand By Assist/Supervision, 1 Person Assist Comments: Patient is continuing to be somewhat limited by fatigue but has met most of his goals. He is modified independent for ambulation over 300 feet. He is able to transfer independently. - Occupational Therapy Eating Ability: Independent Grooming Ability: Independent Bathing Ability: Modified Independent Upper Body Dressing Ability: Independent Lower Body Dressing Ability: Modified Independent Tub Transfer Assist: Patient Refuses Toileting Assist: Independent Toilet Transfer Assist: Modified Independent Comments: For occupational therapy is been very cooperative. He demonstrates good safety and functional balance of ADL routines. He is stable for dismissal from OT standpoint. - Goals Physical Therapy Goals: 10/13/17 goals. 1. 1 rest break in 60 minute therapy session. 2. D/C planning Occupational Therapy Goals: OT goals 10/13/17: 1.) Light meal preparation with modified independence. 2.) Discharge planning - Barriers to Discharge Barriers to Attaining Goals: Other (None) - Care Plan Anticipated Length of Stay (days): 0 Anticipated DC Destination: Home, Self Care, Home Health Service I have led this team conference and agree with the plan. Interventions/Goals: Patient has done well. Pain is better managed. He is stable for dismissal today.
--- NOTE | 2017-10-13 14:35 | Discharge Summary ---
Discharge Information Date of admission: 10/08/17 16:00 Anticipated date of discharge: 10/13/17 Attending Physician: Gerald Garcia MD Primary care physician: Guillermo Monroe MD Consults: 10/08/17 16:42 Case Management Consult [CONS] Routine Reason For Exam: Discharge Planning Consult to Anesthesiology [CONS] Routine Reason For Exam: Preoperative Assessment DME-Walker [CONS] Routine Height: 1.8 m Weight: 138 kg IRU Screening [Inpatient Rehab Screening] [CONS] Routine Total Joint Outpatient Therapy [CONS] Routine Comment: Remove dressing in 2 weeks 10/08/17 18:30 Physician Consult [CONS] Routine Consulting Provider: Bibi Nassar Reason For Exam: medical management Ordering Provider has Notified Financial Planner: No - Discharge Diagnosis (1) Status post left knee replacement Status: Acute (2) Hypertension Status: Acute (3) Obesity, morbid, BMI 40.0-49.9 Status: Acute (4) A-fib Status: Chronic (5) Diabetes Status: Chronic 1. status post left total knee replacement 2. Chronic atrial fibrillation on Pradaxa 3. Diabetes mellitus type 2 on long-term insulin therapy, controlled 4. Hypertension, benign essential - Laboratory Labs: 10/09/17 04:14 10/09/17 04:14 History of Present Illness HPI: Mr. Brown is a very pleasant 72-year-old male who underwent left total knee arthroplasty on 10/07/2017. Dr. Smalls was the surgeon. Surgery went well. However in the immediate postoperative timeframe he developed significant pain and was not able to ambulate safely. He does have history of atrial fibrillation and postoperatively was restarted on his Pradaxa. He does have history of diabetes mellitus with variable blood sugars. For these reasons, it was felt wisest to admit the patient to acute inpatient rehabilitation for a multidisciplinary approach for his recovery. He was unable to be cared for at home due to significant pain and functional deficits. Hospital Course This is a general summary of the patient's hospital course. For more details refer to the complete medical record. The patient was admitted to acute inpatient rehabilitation on 10/09/2017 for a multidisciplinary approach to his recovery. Medically, he was followed by the hospitalist service. Has a history of bronchospasm and wheezing and continued to complain of this. He was given inhaled bronchodilators as well as topical inhaled steroids. He has a history of diabetes mellitus and his blood sugars were monitored. They remained stable. We did monitor his atrial fibrillation and his Pradaxa was restarted. He had no evidence of acute blood loss at this time. Pain management was initially difficult. Ultimately he was able to be controlled with acetaminophen sustained release 1300 mg every 8 hours plus oxycodone IR 15 mg every 3 hours as needed. The following levels of functional competence are to be considered preliminary information. The reader is encouraged to refer to actual therapy notes and reports for specific details. He was seen by occupational therapy. At the conclusion of therapy was modified independent to independent for all activities of daily living. Upper and lower body dressing was independent to modified independent level. He was seen by physical therapy. At the conclusion of therapy he was able to ambulate 125 feet with a front-wheeled walker with standby assist to supervision level. His transfers were in general with standby assist to supervision. Patient was felt to be stable for dismissal on 10/13/2017 with home health follow-up for PT and OT as well as medical supervision of his diabetes and blood pressure. He will follow-up with Dr. Smalls and Dr. Monroe. Hospital course: 10/09 Agree with admission to IRU under the care of Dr Garcia for ongoing therapy Telemetry reviewed- patient is chronically in rate controlled A-fib. Will discontinue Telemetry He is chronically anticoagulated on Pradaxa. Will follow post-op blood counts -Hgb today is 12.5. Pain control seems to be a issue this morning. Discussed with Dr Garcia- Will re -evaluate current regimen as he is getting little relief from Oxycodone Will monitor blood pressure and continue with Hyzaar Monitor accu-checks- On Lantus 30units BID and NovoLog TID with meals. May need adjustments depending on activity level Pt states his family is bringing nasal spray from home. We can order that once cleared by Pharmacy Postop bowel motivation with senna plus scheduled twice a day as well as milk of magnesia as needed Encourage work with PT and OT for ongoing postoperative strengthening Appreciate medical consultation, the hospitalist services will continue to follow patient and medical management. Existing comorbidities during his stay. At time of discharge medical care will return to primary care provider, Dr. Monroe 10/10 Hyperglycemia -we discussed that we will need to use caution increasing insulin b/c of poor appetite and increased activity -pt will determine how much insulin to dose before meals, between 5-10 units, which is what he takes at home. Continue Lantus. He had 1 reading of hypoxia, 89% on room air but this improved to 93% on recheck. He denies any dyspnea. Time spent with patient: greater than 35 minutes Resuscitation Status: Full Code Discharge Plan - Med Rec/Dispo Referrals/Follow Up: Guillermo Monroe MD [Family Provider] - Wally Smalls MD [Physician] - (Dr. Tana Smalls on 10/29/17 at 10:30 am for Hosp. follow-up. [facility] [address] [place] [address] [place] [address]) Skip Instructions: Knee Replacement (GEN) Prescriptions: New Acetaminophen SR [Tylenol Arthritis] 1,300 mg PO Q8HR tab Oxycodone *IR* [Roxicodone *Ir*] 15 mg PO Q3H PRN #30 tab PRN Reason: Pain Fluticasone Nasal [place] [Flonase] 2 spray EA NOSTRIL DAILY #1 bottle Continue Potassium Chloride [K-DUR 10 mEq Tablet] 10 meq PO WS PRN PRN Reason: Edema Rosuvastatin Calcium 20 mg PO WS Furosemide [Lasix 20 mg Tab] 20 tab PO PRN PRN PRN Reason: Edema Insulin Glargine [Lantus] 30 unit SQ BID Dabigatran [Pradaxa] 150 mg PO BID #0 Ascorbic Acid [Vitamin C] 1,000 mg PO BID Insulin Lispro [Humalog] 5 - 10 unit SQ PC Mometasone Furoate [Asmanex] 1 puff INH Q4-6HPRN PRN PRN Reason: Asthma Losartan/Hctz 100/25 [Hyzaar 100/25] 1 tab PO DAILY Albuterol Sulfate [Proair Hfa] 1 puff INH BID PRN PRN Reason: Shortness Of Air/Wheezing Potassium Chloride [Klor-Con M10] 20 meq PO AM ergocalciferol (vitamin D2) 50,000 unit capsule 50,000 unit PO DAILY #4 cap - Disposition 01 Discharged Home, Self-Care - Dismissal Complete Discharge Instructions are:: Complete
--- NOTE | 2017-10-13 14:37 | Letter to Referring Physician ---
Dear Dr. Monroe, This is a brief note to bring you up-to-date on the status of Volodymyr Brown and his stay on the acute inpatient rehabilitation unit at [facility]. As you are likely aware, this patient was admitted to the acute care hospital on 10/07/17 for left total knee arthroplasty. The patient was stabilized while on the acute level and admitted to inpatient rehabilitation unit at [facility] on October 08, 2017. He had severe pain in the left knee and for this reason was not able to be cared for as nonpatient. While on inpatient rehabilitation, this patient was seen by occupational therapy and physical therapy and improved overall in their functional ability. We also monitored and managed the patient's diabetes and atrial fibrillation while on Acute Rehab. Please see a copy of the history and physical examination as well as discharge summary enclosed with this letter for further details. His blood sugars remained stable as did his blood pressure. Please note that he was given a prescription for oxycodone IR 15 mg #30 at the time of dismissal. Thank you for allowing us to be involved in this nice patient's care. Please contact me directly should you have any questions regarding their stay on the inpatient rehabilitation unit. Sincerely, Gerald Garcia M.D.
[2017-10-13 16:02] VITALS: BP 142/63; PULSE 85; RESP 16; TEMP 98.5; O2SAT 94
== END 2017-10-13 16:44 | disposition home health service (06) | DRG 560 ==
PROVIDERS: ADMIT Internal Medicine; ATTEND Internal Medicine

== ENCOUNTER 2018-01-06 05:18 | Inpatient (IN) ==
[2018-01-06 05:48] VITALS: BMI 41.8
[2018-01-06] MEDS ORDERED: ACETAMINOPHEN 500 MG TABLET PO ONE (06:00)
[2018-01-06] MEDS ORDERED: ONDANSETRON 4 MG/2 ML INJECTION IVP ONE (06:00)
[2018-01-06] MEDS ORDERED: LIDOCAINE 1% (10mg/ml) 2mL INJ PF SDV ID ONE (06:00)
[2018-01-06] MEDS ORDERED: METOCLOPRAMIDE 10mg/2ml INJECTION IVP ONE (06:00)
[2018-01-06] MEDS ORDERED: MELOXICAM 15 MG TABLET PO ONE (06:00)
[2018-01-06] MEDS ORDERED: FAMOTIDINE PB 20 MG/50 ML BAG IV ONE (06:00)
[2018-01-06] MEDS: NOZIN NASAL SWAB NAS SCH ×6 (06:10→21:28)
[2018-01-06] MEDS ORDERED: KETAMINE 500 MG/10 ML INJECTION ONE (06:34)
[2018-01-06] MEDS ORDERED: LIDOCAINE 2% (100mg/5mL) 5ml PF SDV ONE ×2 (06:35→06:46)
[2018-01-06] MEDS ORDERED: PROPOFOL 500 MG/50 ML VIAL ONE (06:35)
[2018-01-06] MEDS ORDERED: BUPIVACAINE 0.75%/DEXTROSE 8.5% SPINAL 2 ML AMPULE IJ ONE (06:40)
[2018-01-06] MEDS ORDERED: FentaNYL 250 MCG/5 ML INJECTION ONE (06:41)
[2018-01-06] MEDS ORDERED: VANCOMYCIN 1,000 MG INJECTION ONE (07:00)
[2018-01-06] MEDS ORDERED: LR 1,000 ML IV SCH (07:00)
[2018-01-06] MEDS: CEFAZOLIN 1 G INJECTION IVP ONE (07:04)
[2018-01-06] MEDS ORDERED: FentaNYL 100 MCG/2 ML INJECTION IVP PRN (07:40)
[2018-01-06] MEDS ORDERED: ONDANSETRON 4 MG/2 ML INJECTION IVP PRN ×2 (07:40→10:06)
--- NOTE | 2018-01-06 07:40 | Anesthesia Preoperative Report ---
Anesthesia Preoperative Record - Date and Time Date: 01/06/18 Preoperative Diagnosis: Lt KAREN M16.12 NPO Since Date: 01/05/18 NPO Since Time: 11:55 Allergies/Adverse Reactions: Allergies Allergy/AdvReac Type Severity Reaction Status Date / Time metformin Allergy Unknown YEAST Verified 12/10/17 14:55 INFECTION - Vital Signs Vital Signs: Temperature 98.4 F 01/06/18 05:46 Pulse Rate 94 01/06/18 05:46 Respiratory Rate 15 01/06/18 05:46 Blood Pressure 165/79 H 01/06/18 05:46 Pulse Oximetry 94 01/06/18 05:46 Height and Weight: Height 1.8 m Weight 136.1 kg Body Mass Index 41.8 - Medications Inpatient Medications: Current Medications Lactated Ringer's (Lactated Ringers) 1,000 mls @ 50 mls/hr IV .Q20H [facility] Last Admin: 01/06/18 06:03 Dose: 50 mls/hr Famotidine/Sodium Chloride (Pepcid Premix) 20 mg in 50 mls @ 100 mls/hr IV PREOP ONE Stop: 01/06/18 06:29 Last Admin: 01/06/18 06:09 Dose: 100 mls/hr Epinephrine HCl 0.25 mg/Bupivacaine HCl 30 ml/Ketorolac Tromethamine 60 mg/ Sodium Chloride 62.25 mls @ 0 mls/hr OPSITE INTRAOP ONE; Per Protocol PRN Reason: Protocol Stop: 01/06/18 08:01 Isopropyl Alcohol (Nozin Nasal Swab) 1 each JANIE Q1M [facility] Stop: 01/06/18 13:48 Last Admin: 01/06/18 06:10 Dose: 1 each Sodium Chloride (Iv Flush) 10 - 80 ml IV PRN PRN PRN Reason: Flushing Tranexamic Acid (Cyklokapron) 1,000 mg TOP INTRAOP ONE Stop: 01/06/18 13:38 Home Medications: Home Medications Medication Instructions Recorded Confirmed Type Ascorbic Acid [Vitamin C] 1,000 mg PO BID 03/17/17 01/06/18 History Furosemide [Lasix 20 mg Tab] 20 tab PO DAILY PRN 03/17/17 01/06/18 History Insulin Glargine [Lantus] 30 unit SQ BID 03/17/17 01/06/18 History Insulin Lispro [Humalog] 5 - 10 unit SQ PC 03/17/17 01/06/18 History Potassium Chloride [K-DUR 10 mEq 10 meq PO WS PRN 03/17/17 01/06/18 History Tablet] Rosuvastatin Calcium 20 mg PO WS 03/17/17 01/06/18 History Losartan/Hctz 100/25 [Hyzaar 1 tab PO DAILY 04/03/17 01/06/18 History 100/25] Mometasone Furoate [Asmanex] 1 puff INH BID 04/03/17 01/06/18 History Albuterol Sulfate [Proair Hfa] 1 puff INH BID PRN 05/08/17 01/06/18 History Dabigatran [Pradaxa] 150 mg PO BID #0 05/09/17 01/05/18 Rx Potassium Chloride [Klor-Con M10] 20 meq PO AM 08/18/17 01/06/18 History Fluticasone Nasal [place] [Flonase] 2 spray EA NOSTRIL DAILY #1 bottle 10/13/17 Rx Oxycodone *IR* [Roxicodone *Ir*] 15 mg PO Q3H PRN #30 tab 10/13/17 12/19/17 Rx Acetaminophen SR [Tylenol 1,300 mg PO Q8HR PRN 12/19/17 01/06/18 History Arthritis 650 MG SR] Montelukast Sodium [Singulair] 10 mg PO DAILY 01/01/18 01/06/18 History Maxair 0.2 mg INH PRN PRN 01/06/18 01/06/18 History Is Patient on Beta Behzad?: No - Medical History Respiratory: Reports: Asthma, Other (seasonal allergic rhinitis) DENIES: Sleep Apnea (states has been tested and was negative) Cardiovascular: Reports: Arrhythmia (AFIB, ), Hypertension, High Cholesterol Gastrointestional: Reports: Gastroesophageal Reflux Disease (per h&p-patient denies history), Morbid Obesity Neuro/Musculoskeletal: Reports: Back Problems (compressed disc L2-L3, right buttuck and leg pain ) Renal/Endocrine: Reports: Diabetes Mellitus Type 2 Other History: Reports: Anesthesia Reactions (n/v) - Surgical History HEENT Surgeries: Reports: Nose Surgery (sinus surgery x3), Oral Surgery (dental implants), Other (Exc of growth in throat-middle school) GI Surgery/Treatments: Reports: Colonoscopy (Polyps, hyperplastic and tubular adenoma), Other (abdominal abscess, drained in office) Musculoskeletal Surgery/Tx: Reports: Knee Arthroscopy (right menisectomy), Shoulder Arthroscopy (LEFT), Total Hip Replacement (Rt KAREN 10-17), Total Knee Replacement (Lt TKA 3--18) Reproductive Surgery/Treatment: Reports: Vasectomy Anesthesia Reactions: Nausea and Vomiting Hx Family Anesthesia Reaction: No - Social History Smoking Status: Former smoker Hx Chewing Tobacco Use: No Second Hand Exposure: No Substance Use Type: does not use Alcohol Intake: current Alcohol Intake Frequency: does not drink - Pertinent Findings Laboratory: CBC and BMP 01/06/18 05:53 BMP 01/06/18 05:53 Sodium 144 Potassium 4.1 Chloride 105 Carbon Dioxide 26 BUN 25.0 H Creatinine 0.8 Glucose 149 H Calcium 9.7 EKG: A-fib - Physical Exam Respiratory Exam: Present: wheezing (left upper lobe wheezes) Cardiovascular Exam: Present: irregularly irregular - Airway Assessment Mallampati Score: II TMD: 3 Fingerbreadths Neck Extension: fair Teeth: other (multiple caps) Overall Assessment: may be difficult intubation - ASA ASA Score: 3 - Plan Anesthesia: Neuroaxial Regional/Trunk Block: Spinal - Discussion Discussion: Discussed risks/options/alternatives of anesthesia and questions answered. Patient consents. Nursing pain assessment noted. Present for Discussion: family member Attestation Statement: Prior to the delivery of any anesthetic medication, I examined the patient, developed the plan, obtained the patient's consent and discussed the risk and benefits of the procedure with the patient/guardian. - Additional Information Seen by Anesthesia: Yes
[2018-01-06] MEDS ORDERED: VANCOMYCIN 1,000 MG INJECTION IAR ONE (07:59)
[2018-01-06] MEDS ORDERED: EPINEPHrine PF 0.25 MG, BUPIVACAINE 0.25% PF 30 ML, KETOROLAC INJ 60 MG in NS 30 ML OPSITE ONE (08:00)
--- NOTE | 2018-01-06 08:52 | Operative Note ---
- Procedure Preoperative Diagnosis: Left hip primary degenerative joint disease Postoperative Diagnosis: Same as preoperative diagnosis. Surgeon: Michael Smalls MD Wellness Health Coach: Mabel Carroll Complications: None. Anesthesia: Spinal. Estimated Blood Loss: See Anesthesia Record. Fluids: Please see Anesthesia Record. Description of Procedure: Mr. Brown and his left hip were identified and marked in the preoperative holding area. He was brought back to the operating suite and spinal anesthetic was administered. He was then placed in a lateral decubitus position with his left hip up. The left lower extremity was prepped and draped in my normal sterile fashion. Timeout was performed. The [employer] robotic arm was used to assist with the surgery. A pelvic array was placed into the iliac crest through three small incisions. A direct superior approach was utilized. An approximately 15 cm incision was made in the skin and dissection carried down to the muscle fascia which was then split in line with skin incision. A Charnley retractor was placed. The short external rotators were identified and tagged and detached. A capsulotomy was performed and the hip dislocated. A femoral neck osteotomy was performed at the pre-templated level measuring down from the femoral head 60mm. The head was removed and acetabulum exposed. Labrum was removed. The acetabulum was then registered with the robot. The robotic arm was then used to ream with a 55 reamer. The robot then was again used to place a 56 Trident cup in 40 of tilt and 20 of anteversion. A liner was then placed. The proximal femur was exposed and prepared with a cookie cutter followed by reaming and broaching to a size 5. We trialed with a 127 neck and +2.5 head. This was stable but still short so we trialed with a +7.5 head which returned as operative hip to preoperative leg length. After thorough irrigation a final Accolade 2 size 5 stem with 0.7 neck was placed. Leg length and offset were checked with the robot and were good. A final +7.5 ceramic 36 mm head was placed and the hip reduced. Betadine solution was used to irrigate throughout the case. It was followed by normal saline irrigation. Joint cocktail was injected throughout soft tissue. The capsulotomy was repaired with Ethibond. Short external rotators were also repaired with Ethibond. 1 g of TXA was allowed to sit in the wound for 5 minutes and then suctioned out. 1 g of vancomycin powder was placed into the wound. The muscle fascia was then repaired with #1 Vicryl. I then left my assistant professor of art to close the subcutaneous tissue with 2-0 Vicryl followed by running 4-0 Monocryl skin followed by Dermabond and a sterile dressing. The patient with any placed back into supine position and taken to recovery room in the care of anesthesia.
--- NOTE | 2018-01-06 09:45 | Anesthesia Postoperative Note ---
- Date and Time Date: 01/06/18 Time: 09:45 - Status Patient Participated in Evaluation: Patient Participated in Person Vital Signs: Temperature 97.2 F 01/06/18 09:23 Pulse Rate 84 01/06/18 09:40 Respiratory Rate 16 01/06/18 09:40 Blood Pressure 144/79 H 01/06/18 09:40 Pulse Oximetry 96 01/06/18 09:40 Respiratory Function: Airway Patent, Regular Respirations Cardiovascular Function: Regular Pulse Mental Status: Alert and Oriented Pain Intensity: 0 Hydration: IV Infusing Complications During Recover: None Apparent - Follow-Up Instructions Instructions: Per Surgeon
[2018-01-06] MEDS ORDERED: LORazepam 1 MG TABLET PO PRN (10:06)
[2018-01-06] MEDS ORDERED: ALBUTEROL 2.5mg/3ml (0.083%) NEB AEROSOL PRN (10:06)
[2018-01-06] MEDS ORDERED: FUROSEMIDE 20 MG TABLET PO PRN (10:06)
[2018-01-06] MEDS ORDERED: DiphenhydrAMINE 25 MG CAPSULE PO PRN (10:06)
[2018-01-06] MEDS ORDERED: NOZIN NASAL SWAB NAS ONE (10:06)
[2018-01-06] MEDS ORDERED: DiphenhydrAMINE 50 MG/ML INJECTION IVP PRN (10:06)
[2018-01-06] MEDS: NS 1,000 ML IV SCH ×2 (10:44→22:57)
--- NOTE | 2018-01-06 11:12 | XRay Report ---
Indication: postoperative image PROCEDURE: XR pelvis w/ 1 view LT hip: Encounter: Initial Comparison: December 10, 2017 Findings: Postoperative changes of left total hip replacement are seen. There is expected postoperative subcutaneous gas. No evidence of hardware failure or acute fracture. No retained radiopaque surgical instruments or sponges seen. Existing right hip prosthesis is unchanged. Impression: New left total hip prosthesis without evidence of immediate complication. .
[2018-01-06] MEDS: ACETAMINOPHEN 325 MG TABLET PO SCH ×3 (13:15→20:59)
[2018-01-06] MEDS ORDERED: SALINE FLUSH 10ml SYRINGE IV PRN (13:37)
[2018-01-06] MEDS ORDERED: TRANEXAMIC ACID 1,000 MG/10 ML VIAL TOP ONE (13:37)
[2018-01-06] MEDS: CEFAZOLIN 3 G in NS 100 ML IV SCH ×2 (14:39→22:57)
[2018-01-06] MEDS: INSULIN ASPART 100unit/ml INJECTION SQ PRN ×2 (15:37→20:56)
[2018-01-06] MEDS ORDERED: ROSUVASTATIN 20 MG TABLET PO SCH (17:30)
[2018-01-06] MEDS: DOCUSATE SODIUM 100 MG CAPSULE PO SCH (20:59)
[2018-01-06] MEDS ORDERED: SENNOSIDES 8.6 MG TABLET PO SCH (21:00)
[2018-01-06] MEDS: FLUTICASONE NASAL SPRAY 50mcg EA NOSTRIL SCH (21:00)
[2018-01-06 23:05] VITALS: RESP 18
[2018-01-07] MEDS: Oxycodone *IR* 5 MG TABLET PO PRN ×2 (03:58→08:37)
[2018-01-07] MEDS: NOZIN NASAL SWAB NAS SCH ×2 (06:05→14:42)
[2018-01-07] MEDS: INSULIN ASPART 100unit/ml INJECTION SQ PRN ×2 (06:13→10:08)
--- NOTE | 2018-01-07 08:18 | Orthopedic Progress Note ---
Date: Date: 01/07/18 Time: 814 Subjective/Severity of Illness: Volodymyr is lying in bed this morning during rounds. Reports headache last night which Roxicodone helped. Left hip pain has been well controlled. He did require O2 overnight and this morning, does not use at home. Denies any CP, SOA, nausea. Tolerating PO well. Has been on Novolog SS insulin, glucose this morning 167. Hgb 12.8 Telemetry afib- rate 80-100s Orthopedic Exam Vital signs: Temperature 98.9 F 01/07/18 03:56 Pulse Rate 100 01/07/18 07:31 Respiratory Rate 18 01/07/18 07:31 Blood Pressure 155/90 H 01/07/18 07:31 Pulse Oximetry 95 01/07/18 07:31 - Constitutional General Appearance: Present: alert, orientated x3, cooperative, well developed, well nourished - Respiratory Exam Present: CTA bilaterally, non-labored - Cardiovascular Exam Present: irregular rhythm, pedal pulses intact - Abdominal Exam Present: soft - Extremities Exam Present: pulses intact. Absent: calf tenderness - Dressing Dressing: dry, intact, no drainage Comments: mepilex left hip - Integumentary Exam Present: pink, warm, dry - Neurological Exam Present: intact to light touch, no deficits - Psychiatric Exam Present: alert, oriented, normal affect - Labs Result Diagrams: 01/07/18 04:35 01/07/18 04:35 Abnormal lab results 01/07/18 01/07/18 Range/Units 04:35 04:35 Hgb 12.8 L (13.5-17.5) GM/DL Hct 39.7 L (41-53) % BUN 21.0 H (9-20) MG/DL Glucose 167 H (75-110) MG/DL Calculated Osmolality 282 H (261-280) MOSM/KG H & H 01/07/18 Range/Units 04:35 Hgb 12.8 L (13.5-17.5) GM/DL Hct 39.7 L (41-53) % Orthopedic Assessment and Plan (1) Primary osteoarthritis of left hip Status: Acute Assessment and Plan: Current anti-coagulation protocol- restarted home Pradaxa for VTE prophylaxis. SCD's for added protection PT/OT services to improve independent function. Discharge Planning per Case Management. - Anticoagulation Therapy Anticoagulation: Resume home anticoagulant - Additional Diagnoses Atrial Fibrillation: resume medications, rate controlled, other (restarted Pradaxa) Hypertension: stable, resume medications Diabetes: resume insulin regimen, continue with sliding scale insulin Hospital Course Summary Disclaimer: The visit summary below is not to be considered part of the above Progress Note.
--- NOTE | 2018-01-07 08:25 | Discharge Summary ---
Orthopedic Discharge Info Date of admission: 01/06/18 05:18 Anticipated date of discharge: 01/07/18 Primary care physician: Guillermo Monroe MD Attending Physician: Wally Smalls MD Consults: 01/06/18 05:30 Consult to Anesthesiology [CONS] Routine Reason For Exam: Preoperative Assessment 01/06/18 10:06 Case Management Consult [CONS] Routine Reason For Exam: Discharge Planning DME-Walker [CONS] Routine Height: 5 ft 11 in Weight: 136.1 kg Total Joint Outpatient Therapy [CONS] Routine Comment: Remove dressing in 2 weeks - Discharge Diagnosis (1) Primary osteoarthritis of left hip Status: Acute - Procedures Procedures: Procedures Gait Training/Functional Ambulation Treatment (10/08/17) Home Management Treatment (10/08/17) Therapeutic Exercise Treatment of Musculoskeletal System - Whole Body (10/08/17) - Laboratory Result Diagrams: 01/07/18 04:35 01/07/18 04:35 Laboratory: Abnormal lab results 01/07/18 01/07/18 Range/Units 04:35 04:35 Hgb 12.8 L (13.5-17.5) GM/DL Hct 39.7 L (41-53) % BUN 21.0 H (9-20) MG/DL Glucose 167 H (75-110) MG/DL Calculated Osmolality 282 H (261-280) MOSM/KG H & H 01/07/18 Range/Units 04:35 Hgb 12.8 L (13.5-17.5) GM/DL Hct 39.7 L (41-53) % Orthopedic Discharge HPI - HPI Comments This patient was admitted for elective surgical tx of end stage degenerative joint disease that failed to respond to conservative treatment. Further details of this is found in the admission H&P. Orthopedic Hospital Course Hospital course: 01/07/18 08:20 After appropriate preoperative clearance and signing of operative consent, the patient was given IV antibiotics, according to orthopedic protocol. The patient was taken to the operating room and underwent elective left total hip arthroplasty. Following surgery, antibiotics were discontinued less than 24 hours according to joint protocol. Appropriate anticoagulants were initiated and SCDs added for DVT prevention. The dressing was clean, dry, and intact. Pain control was obtained via multimodal approach. Bowel motivation addressed with scheduled and PRN medications. Early mobilization was initiated through PT services. Discharge arrangements made by a collaborative effort between the patient and Case Management. Afib- restarted home medications, rate controlled. Restarted Pradaxa. HTN- restarted home medications, SBP 130-150s. DM- Transitioned from SS Novolog to home insulin regimen once tolerating PO well. Patient regulates Humalog scale 5-10units pending BG. Anemia- Hgb 12.8, stable, no acute intervention required. Patient to schedule medical follow up with PCP 1 week after discharged. Follow-up is scheduled in 2-3 weeks. Discharge instructions given by orthopedic providers and nursing staff at discharge. Discharge condition was good. 01/07/18 12:43 Care extended to > 2 midnight stays?: No Discharge Plan - Med Rec/Dispo Referrals/Follow Up: Mabel Carroll APRN [Advanced Practice Nurse] - 01/26/18 11:00 am Skip Instructions: [facility] Postop Instructions Prescriptions: New Acetaminophen [Tylenol] 650 mg PO QID tab Docusate Sodium [Colace] 100 mg PO BID cap Milk of Magnesia [Mom] 30 ml PO DAILY udc Oxycodone *IR* [Roxicodone *Ir*] 5 - 15 mg PO Q3H PRN #60 tab PRN Reason: Breakthrough Pain PEG 3350 17gm PACKET [Miralax] 17 gm PO DAILY packet Continue Potassium Chloride [K-DUR 10 mEq Tablet] 10 meq PO WS PRN PRN Reason: Edema Rosuvastatin Calcium 20 mg PO WS Furosemide [Lasix 20 mg Tab] 20 mg PO DAILY PRN PRN Reason: Edema Insulin Glargine [Lantus] 30 unit SQ BID Dabigatran [Pradaxa] 150 mg PO BID #0 Oxycodone *IR* [Roxicodone *Ir*] 15 mg PO Q3H PRN #30 tab PRN Reason: Pain Acetaminophen SR [Tylenol Arthritis 650 MG SR] 1,300 mg PO Q8HR PRN PRN Reason: Pain Montelukast Sodium [Singulair] 10 mg PO DAILY Ascorbic Acid [Vitamin C] 1,000 mg PO BID Insulin Lispro [Humalog] 5 - 10 unit SQ PC Mometasone Furoate [Asmanex] 1 puff INH BID Losartan/Hctz 100/25 [Hyzaar 100/25] 1 tab PO DAILY Albuterol Sulfate [Proair Hfa] 1 puff INH BID PRN PRN Reason: Shortness Of Air/Wheezing Potassium Chloride [Klor-Con M10] 20 meq PO AM Fluticasone Nasal [place] [Flonase] 2 spray EA NOSTRIL DAILY #1 bottle Maxair 0.2 mg INH PRN PRN PRN Reason: wheezing/shortness of air - Disposition 01 Discharged Home, Self-Care - Dismissal Complete Discharge Instructions are:: Complete
[2018-01-07] MEDS: ACETAMINOPHEN 325 MG TABLET PO SCH ×2 (08:37→12:52)
[2018-01-07] MEDS: DOCUSATE SODIUM 100 MG CAPSULE PO SCH (08:38)
[2018-01-07] MEDS: FLUTICASONE NASAL SPRAY 50mcg EA NOSTRIL SCH (08:39)
[2018-01-07] MEDS ORDERED: MONTELUKAST 10 MG TABLET PO SCH (09:00)
[2018-01-07] MEDS ORDERED: INSULIN GLARGINE 100unit/ml INJECTION SQ SCH (09:00)
[2018-01-07] MEDS ORDERED: FLUTICASONE NASAL SPRAY 50mcg EA NOSTRIL SCH (09:00)
[2018-01-07] MEDS ORDERED: POLYETHYL GLYCOL 3350 17gm PACKET PO SCH (09:00)
[2018-01-07] MEDS ORDERED: SENNOSIDES 8.6 MG TABLET PO PRN (09:17)
[2018-01-07] MEDS: INSULIN ASPART 100unit/ml INJECTION SQ SCH ×2 (10:08→12:53)
[2018-01-07] MEDS: CEFAZOLIN 1 G INJECTION IVP ONE (10:14)
[2018-01-07] MEDS: NS 1,000 ML IV SCH (12:53)
[2018-01-07 15:11] VITALS: BP 135/67; PULSE 97; TEMP 98; O2SAT 93
[2018-01-08] MEDS ORDERED: BISACODYL 10 MG SUPPOSITORY RECTALLY SCH (20:00)
== END 2018-01-07 16:15 | disposition home health service (06) | DRG 470 ==
LOC: SRG 05:18
PROVIDERS: ADMIT Orthopaedic Surgery; ATTEND Orthopaedic Surgery